=== PATIENT | female | born 1980 | race Caucasian/White ===

== ENCOUNTER 2017-01-19 16:47 | Emergency (ER) ==
[2017-01-19 16:57] VITALS: BMI 15.1
--- NOTE | 2017-01-19 17:06 | ED.PDOC ---
General ED Provider: Dr. MANOJ HILLS JR Chief Complaint: Back Pain Stated Complaint: onset lower back pain 10 days ago--no new injury-was seen at [facility] --treated with x-rays and pain med but no relief-on arrival is screaming loudly--also unable to move bowels --tried mag citrate with no relief- [End] 96.2 125 20 95% 118/99 05/28 norco 10 patient has been on pain management for "bulging discs" for three years upped [place] for past three days ( total of ten days) Time Seen by Physician: 17:05 Mode of Arrival: Wheelchair Information Source: Patient, Family Exam Limitations: No limitations Primary Care Provider: JAN HASSAN Family in [place], [place] - [facility] [place] [phone] Nursing and Triage Documentation Reviewed and Agree: No Review of Systems - Review Of Systems Constitutional: Reports: No symptoms Eyes: Reports: No symptoms Ears, Nose, Mouth, Throat: Reports: No symptoms Respiratory: Reports: No symptoms Cardiac: Reports: No symptoms GI: Reports: Constipated : Reports: No symptoms Musculoskeletal: Reports: Back pain Skin: Reports: No symptoms Neurological: Reports: No symptoms, Other (I was crying when I found out how I weigh.) All Other Systems: Other Past Medical History - Past Medical History Endocrine: Reports: None Cardiovascular: Reports: CAD, Other (--mitral valve prolapse ) Respiratory: Reports: PE (pe rt lung) Hematological: Reports: Anemia Gastrointestinal: Reports: None Genitourinary: Reports: None Neuro/Psych: Reports: None Musculoskeletal: Reports: None Cancer: Reports: None Last Menstrual Period: last week - Surgical History General Surgical History: Denies: Hysterectomy (left ovarian cyst-ovary removed- -also rt ovarian cyst--) - Family History Family History: Reports: Unknown - Social History Smoking Status: Current every day smoker, Light tobacco smoker Smoking Cessation Counseling Time: > 3 min - 10 min Hx Substance Use: No Alcohol Screening: None Physical Exam - Physical Exam Appearance: Ill-appearing, Cachectic Ill-appearing: Mild Pain Distress: Mild Eyes: KAIN, EOMI, Conjunctiva clear ENT: Ears normal, Nose normal, Oropharynx normal Neck: Supple Respiratory: Airway patent, Breath sounds equal, Respirations nonlabored, Rhonchi, Wheezes Cardiovascular: RRR, Pulses normal, No rub, No murmur GI/: Soft, Nontender, No masses, Bowel sounds normal, No Organomegaly Musculoskeletal: Normal strength, ROM intact, No edema, No calf tenderness ( complains of back tenderness but no focal tenderness complains of back pain at L4-5 level no skin changes seen) Skin: Warm, Dry, Normal color Neurological: Sensation intact, Motor intact, Reflexes intact, Cranial nerves intact, Alert, Oriented (complains of pain states visiting in [place] does not seem to understand wisdom for continuity of care) Psychiatric: Anxious Interpretation - Radiology Interpretation Radiology Interpretation By: Radiologist Radiology Results: Positive Exam Interpreted: CT Scan ([place]- adenopathy vs retroperitoneal fibrosis , can be idiapathic usially or caused by ergot other meds or desmoplastic lymphoma) Re-Evaluation - Re-Evaluation Time of Re-Evaluation: 17:38 (awaiting old records- note release [id number] calledleft message [id number]) Status: Unchanged Vital Signs Stable: Yes ([id number] awaiting old records called Lisa [place] in [place]- [place]) Pain Level: flying out - will lfax records after transfer - Re-Evaluation Time of Re-Evaluation: 21:31 Status: Improved (each injection of 2mg MS resolved patient' pain) Physician Notification - Case Discussed Physician Notified: dr cherry Time of Notification: 21:31 (previously disc with SHAYLA ARIZA, discwith DR KENDALL CHERRY- [id number] transfer retroperitoneal fibrosis) Endorsed To/Discussed With: DR LOPEZ Time of Discussion: 19:00 Critical Care Note - Critical Care Note Total Time (mins): 5 Course - Course Hematology/Chemistry: 01/19/17 19:45 01/19/17 19:45 Orders, Labs, Meds: Lab Review 01/19/17 01/19/17 17:35 19:45 WBC 14.70 H RBC 3.75 L Hgb 10.9 L Hct 32.7 L MCV 87.2 MCH 29.1 MCHC 33.3 RDW Coeff of Vitor 14.2 Plt Count 298 Immature Gran % (Auto) 0.4 Neut % (Auto) 83.9 Lymph % (Auto) 9.3 L [place] % (Auto) 6.1 Eos % (Auto) 0.1 Baso % (Auto) 0.2 Immature Gran # (Auto) 0.1 Neut # 12.3 H Lymph # 1.4 [place] # 0.9 Eos # 0.0 Baso # 0.0 ESR 118 H PT 10.6 INR 1.03 D-Dimer (Manual) 3532.13 Sodium 135 L Potassium 4.4 Chloride 96 L Carbon Dioxide 27 Anion Gap 16.4 BUN 12 Creatinine 0.75 Estimated GFR (MDRD) 88.00 BUN/Creatinine Ratio 16.00 Glucose 96 Calcium 10.5 H Total Bilirubin 0.41 AST 19 ALT 13 Alkaline Phosphatase 91 Total Protein 8.4 H Albumin 3.0 L Globulin 5.4 Albumin/Globulin Ratio 0.56 Urine Color Yellow Urine Clarity Clear Urine pH 7.5 Ur Specific [place] 1.015 Urine Protein 1+ Urine Glucose (UA) Negative Urine Ketones Negative Urine Blood 2+ Urine Nitrite Negative Urine Bilirubin Negative Urine Urobilinogen 0.2 Ur Leukocyte Esterase Negative Urine Microscopic RBC 2-5 Urine Microscopic WBC 0-2 Ur Squamous Epith Cells 0-2 Urine Test Negative Orders Category Date Time Status NPO REMINDER: IMAGING ONCE CARE 01/19/17 19:55 Completed NPO REMINDER: IMAGING ONCE CARE 01/19/17 20:18 Completed IV [ED IV/MEDIPORT/POWERPORT] .ONCE EMERGENCY 01/19/17 20:19 Active CBC W/ AUTO DIFF Stat LAB 01/19/17 19:45 Completed CMP [COMPREHENSIVE METABOLIC PANEL] Stat LAB 01/19/17 19:45 Completed CRP [C-REACTIVE PROTEIN] Stat LAB 01/19/17 19:45 Received D-DIMER Stat LAB 01/19/17 19:45 Completed ESR Stat LAB 01/19/17 19:45 Completed TEST URINE [URINE ] Stat LAB 01/19/17 17:35 Completed PT WITH INR Stat LAB 01/19/17 19:45 Completed UA [URINALYSIS C & S IF INDICATED] Stat LAB 01/19/17 17:35 Completed 0.9 % Sodium Chloride [Saline Flush] MEDS 01/19/17 20:19 Ordered 1 syr IVF PRN PRN Benzonatate [Tessalon Perles] MEDS 01/19/17 17:59 Discontinued 200 mg PO ONCE STA Morphine Sulfate [Morphine 2 mg/ml Syringe] MEDS 01/19/17 17:43 Discontinued 2 mg IM ONCE STA Morphine Sulfate [Morphine 2 mg/ml Syringe] MEDS 01/19/17 17:19 Discontinued 2 mg IVP ONCE STA Morphine Sulfate [Morphine 2 mg/ml Syringe] MEDS 01/19/17 20:44 Discontinued 2 mg IVP ONCE STA Promethazine HCl [Phenergan 25 mg/ml Vial] MEDS 01/19/17 17:19 Discontinued 25 mg IM ONCE STA CHEST, 2 VIEWS PA & LAT Stat RADS 01/19/17 18:[address] ABD/PEL WO RENAL STONE PROT Stat RADS 01/19/17 18:[address] ABDOMEN/PELVIS W CONTRAST Stat RADS 01/19/17 20:[address] LUMBAR SPINE W/CONTRAST Stat RADS 01/19/17 20:[address] LUMBAR SPINE W/O CONTRAST Stat RADS 01/19/17 19:02 Completed Medications Generic Name Dose Route Start Last Admin Trade Name Freq PRN Reason Stop Dose Admin Sodium Chloride 1 syr 01/19/17 20:19 01/19/17 21:05 Saline Flush IVF 1 syr PRN PRN Administration To flush IV Discontinued Medications Generic Name Dose Route Start Last Admin Trade Name Freq PRN Reason Stop Dose Admin Benzonatate 200 mg 01/19/17 17:59 01/19/17 18:04 Tessalon Perles PO 01/19/17 18:00 200 mg ONCE STA Administration Morphine Sulfate 2 mg 01/19/17 17:19 01/19/17 17:52 Morphine 2 Mg/Ml Syringe IVP 01/19/17 17:20 Not Given ONCE STA Morphine Sulfate 2 mg 01/19/17 17:43 01/19/17 17:49 Morphine 2 Mg/Ml Syringe IM 01/19/17 17:44 2 mg ONCE STA Administration Morphine Sulfate 2 mg 01/19/17 20:44 01/19/17 20:59 Morphine 2 Mg/Ml Syringe IVP 01/19/17 20:45 2 mg ONCE STA Administration Promethazine HCl 25 mg 01/19/17 17:19 01/19/17 17:51 Phenergan 25 Mg/Ml Vial IM 01/19/17 17:20 25 mg ONCE STA Administration Vital Signs: Temp Pulse Resp BP Pulse Ox 01/19/17 20:46 98.4 F 120 H 14 102/68 96 01/19/17 16:47 96.2 F L 125 H 20 118/99 H 95 Departure - Departure Time of Disposition: 19:24 Disposition: TSF SHORT-TRM HOSP Discharge Problem: Retroperitoneal fibrosis Condition: Stable Pt referred to PMD for follow-up: No ([facility], [place] Dr Cherry) Additional Instructions: Follow up PMD discuss low weight and back pain consider exercise program for back pain Smoking with a history of Pulmonary Embolism is contraindicated- you must stop smoking to help avoid new emboli return if fever over 101.[address] of spine for back pain with your physician Allergies/Adverse Reactions: Allergies codeine Adverse Reaction (Verified 01/19/17 16:59) ketorolac [From Toradol] Adverse Reaction (Verified 01/19/17 16:59) latex Adverse Reaction (Verified 01/19/17 16:59) tramadol Adverse Reaction (Verified 01/19/17 16:59) Home Medications: Ambulatory Orders Hydrocodone/Acetaminophen [Hydrocodon-Acetaminophn 10-300] 1 each PO QID PRN 11/02 Trazodone HCl 100 mg PO DAILY 01/19/17 Warfarin Sodium [Coumadin] 5 mg PO DAILY 01/19/17
[2017-01-19] MEDS ORDERED: PHENERGAN 25 MG/ML VIAL IM STA (17:19)
[2017-01-19] MEDS ORDERED: MORPHINE 2 MG/ML SYRINGE IVP STA ×2 (17:19→20:44)
[2017-01-19 17:43] LABS: BILIRUBIN,URINE Negative (NEGATIVE); KETONES,URINE Negative (NEGATIVE); LEUKOCYTE ESTERASE ,URINE Negative (NEGATIVE); NITRITE,URINE Negative (NEGATIVE); PH,URINE 7.5 (5-9); PROTEIN,URINE 1+ (NEGATIVE); URINE, BLOOD 2+ (NEGATIVE)
[2017-01-19] MEDS ORDERED: MORPHINE 2 MG/ML SYRINGE IM STA (17:43)
[2017-01-19 17:44] LABS: URINE PREGNANCY INTERNAL QC INTERNAL QC VALID
[2017-01-19 17:45] LABS: ADD URINE MICROSCOPIC YES
[2017-01-19] MEDS ORDERED: TESSALON PERLES PO STA (17:59)
--- NOTE | 2017-01-19 19:32 | DI ---
EXAM: PA and lateral views of the chest HISTORY: Cough COMPARISON: None FINDINGS: Lungs are clear with no lobar consolidation, failure, large effusion or significant atele ctasis. The cardiomediastinal silhouette is unremarkable. No acute osseous or soft tissue abnormal ities. IMPRESSION: No active disease.
--- NOTE | 2017-01-19 19:39 | CT ---
EXAM: CT scan abdomen pelvis without contra HISTORY: Lower abdominal pain hematuria COMPARISON: None. FINDINGS: Contiguous axial images obtained through the abdomen pelvis without contrast utilizing 3- mm collimation. Sagittal coronal reconstructions were imaged and reviewed.. There is a ground-glas s infiltrate in the right lower lobe.. Nonspecific fissural thickening is noted laterally at the le ft lung base. There is likely dependent sludge within the gallbladder. Liver pancreas spleen and ad renal glands have normal unenhanced CT appearance. Kidneys are morphologically normal.. The append ix was not visualized.. Review of bone windows reveals no evidence of lytic or blastic lesions.. T here is mild intervertebral disc space narrowing at L4-L5. IMPRESSION: Ground-glass infiltrate right lower lobe. No acute intra-abdominal findings.
[2017-01-19 19:51] LABS: BASOPHILS % (AUTO) 0.2 % (0.0-3.0); EOSINOPHILS % (AUTO) 0.1 % (0.0-7.0); HEMATOCRIT 32.7 % (37.0-47.0); HEMOGLOBIN 10.9 g/dl (12.0-16.0); IMMATURE GRANULOCYTE % (AUTO) 0.4 % (0.0-5.0); LYMPHOCYTES # (AUTO) 1.4 K/uL (0.60-3.4); LYMPHOCYTES % (AUTO) 9.3 (10.0-50.0); MEAN CORPUSCULAR HEMOGLOBIN 29.1 pg (27.0-31.0); MEAN CORPUSCULAR HGB CONC 33.3 (31.8-35.4); MEAN CORPUSCULAR VOLUME 87.2 fl (81.0-99.0); MONOCYTES # (AUTO) 0.9 K/uL (0.4-2.0); MONOCYTES % (AUTO) 6.1 (0-10); NEUTROPHILS # (AUTO) 12.3 K/ul (2.0-6.9); NEUTROPHILS % (AUTO) 83.9; PLATELET COUNT 298 10^3/uL (140-440); RED BLOOD COUNT 3.75 10^6/ul (4.20-5.40)
[2017-01-19 20:01] LABS: PROTHROMBIN TIME 10.6 SEC (9.3-11.0)
--- NOTE | 2017-01-19 20:05 | CT ---
EXAM: CT of the lumbar spine without contrast. TECHNIQUE: Helical CT of the lumbar spine was performed without contrast with coronal and sagittal reconstructions. COMPARISON: CT abdomen pelvis from 09/1989 HISTORY: Back pain FINDINGS: There is no compression or subluxation. Alignment is anatomic. There are no pars defect s. There is no bony effacement of the canal. There is no evidence for laminar or transverse process or spinous process fracture. The pedicles are intact. The facets are anatomically aligned. There i s no abnormality seen in the visualized portion of the bony pelvis. There are five lumbar-type verte bral bodies. L1-2: Normal L2-3: Normal L3-4: Normal L4-5: There is some disc space narrowing with some facet arthropathy on the left. L5 S1: There is a minimal bulge with some minimal facet degenerative change. There is noted to be quite a bit of abnormal soft tissue in the retroperitoneum slightly to the left of midline most apparent at the L5 level. IMPRESSION: 1. Minimal degenerative change as above including degenerative facet arthropathy on the left and so me disc space narrowing at L4-5. 2. Abnormal soft tissue in the retroperitoneum slightly to the left of midline as described. This m ay be on the basis of retroperitoneal fibrosis versus less likely adenopathy. Would recommend a CT abdomen pelvis with contrast to better evaluate. Report called to Dr. Quinonez
[2017-01-19 20:11] LABS: ALBUMIN/GLOBULIN RATIO 0.56; ANION GAP 16.4; BILIRUBIN,TOTAL 0.41 mg/dL (0.00-1.20); CALCIUM 10.5 mg/dL (8.2-10.2); CREATININE 0.75 mg/dL (0.60-1.30); POTASSIUM 4.4 mmol/L (3.5-5.10); TOTAL PROTEIN 8.4 g/dL (6.4-8.2)
[2017-01-19 20:25] LABS: ERYTHROCYTE SEDIMENTATION RATE 118 mm/hr (0-20); ESR INTERNAL QC INTERNAL QC VALID
[2017-01-19 20:47] VITALS: BP 102/68; TEMP 98.4
--- NOTE | 2017-01-19 21:01 | CT ---
EXAM: CT scan of the lumbar spine with contrast HISTORY: Lumbosacral pain. Suspected peritoneal fibrosis. TECHNIQUE: Imaging of the lumbar spine was performed with intravenous contrast. Sagittal and coron al reconstructions and axial images were provided for interpretation. FINDINGS: There is straightening of the lumbar spine. There is no evidence of compression fracture . There is no pars defect. There is soft tissue fullness seen within the retroperitoneum on the le ft. Findings are seen on axial image number 67. The findings appear to be encasing the left common iliac vein. Segmental analysis: T12-L1: The central canal and neural foramina appear patent. L1-L2: The central canal and neural foramina appear patent. L2-L3: The central canal and neural foramina appear patent. L3-L4: The central canal and neural foramina appear patent. L4-L5: There is disc bulge with a superimposed central disc protrusion measuring 5 mm AP, indenting the ventral thecal sac. There is mild central canal and lateral recess stenosis. The thecal sac i s reduced to 8 mm AP. There is mild bilateral foraminal stenosis. L5-S1: The central canal and lateral recesses appear patent. There is mild narrowing of the neural foramina bilaterally. IMPRESSION: There is abnormal soft tissue seen within the retroperitoneum on the left as described above. Refer to the CT scan of the abdomen and pelvis performed on the same day for further details . The findings may represent retroperitoneal fibrosis. There is disc bulge with a superimposed central broad-based disc protrusion seen at L4-L5 measuring 5 mm AP causing mild central canal and lateral recess stenosis at L4-L5. No acute compression fractures are seen within the lumbar spine.
--- NOTE | 2017-01-19 21:16 | CT ---
EXAM: CT of the abdomen pelvis with contrast TECHNIQUE: Helical axial CT of the abdomen pelvis was performed with contrast with coronal and sagi ttal reconstructions. COMPARISON: CT abdomen pelvis precontrast from today earlier HISTORY: Back pain FINDINGS: Again seen is a vague area of soft tissue in the retroperitoneum extending from L4 to the S1 level left greater than right. This area shows some patchy areas of enhancement and encases the common iliac vein on the left which is poorly opacified. There is no evidence for osseous invasion . Maximum thickness is noted over the left aspect of the L5 vertebral body of about 2 cm. The liver, spleen, pancreas, adrenal glands and kidneys are unremarkable. There is no hydronephrosi s. Uterus and adnexa are unremarkable. Urinary bladder is normal. There are no acute osseous abno rmalities. Again seen is a patchy area of infiltrate in the right lung base. There are a few promi nent loops of small bowel in the right pelvis. There is no overt obstruction or ileus. There is no free air or free fluid or bowel wall thickening or edema. IMPRESSION: 1. Abnormal soft tissue in the left retroperitoneal area seen from L4-S1 which encases the left com mon iliac vein and demonstrates patchy areas of enhancement. This is most consistent with retroperi toneal fibrosis probably idiopathic etiology however certain medications such ergot alkaloids can al so be associated. Atypical appearance for adenopathy is considered less likely. 2. Patchy infiltrate right base. 3. Multiple prominent loops of small bowel in the right pelvis with no definite obstruction. Report called to Dr. Quinonez
== END 2017-01-19 21:55 | disposition short-term general hospital (02) ==
LOC: EDBD 16:47 → ED 16:47
DX: N13.5 Crossing vessel and stricture of ureter without hydronephrosis (principal); K59.00 Constipation, unspecified; M54.5 Low back pain; D64.9 Anemia, unspecified; I25.10 Atherosclerotic heart disease of native coronary artery without angina pectoris; F17.210 Nicotine dependence, cigarettes, uncomplicated; Z86.711 Personal history of pulmonary embolism; Z79.01 Long term (current) use of anticoagulants; Z79.899 Other long term (current) drug therapy
CPT/HCPCS: 36415; 74176; 80053; 81001; 81025; 85025; 85379; 85610; 85651; 86140; 96372; 96374; 99285

== ENCOUNTER 2017-01-19 21:56 | Outpatient (CLI) ==
[2017-01-19 16:57] VITALS: BMI 15.1
== END 2017-01-19 21:57 | disposition home or self-care (01) ==
LOC: AMBL 21:56
PROVIDERS: ATTEND Family Medicine
DX: M54.5 Low back pain (principal); R93.7 Abnormal findings on diagnostic imaging of other parts of musculoskeletal system

== ENCOUNTER 2017-11-25 12:46 | Emergency (ER) ==
[2017-11-25 12:50] VITALS: BP 127/90; TEMP 97.7; BMI 16.9
--- NOTE | 2017-11-25 14:25 | US ---
EXAM: Ultrasound Transvaginal Non-obstetrical. HISTORY: Pelvic pain. COMPARISON: CT 01/19/2017. TECHNIQUE: Goff scale and color doppler images with transvaginal probe. FINDINGS: The uterus measures 5.8 x 2.8 x 3.9 cm and appears normal. Endometrial stripe measures 0. 2 cm. No endometrial fluid collections are seen. Right ovary measures 3.8 x 2.4 x 2.9 cm and contains several follicles. Color flow present in the ri ght ovary. Left ovary not seen. No adnexal masses or pelvic fluid collections are identified. IMPRESSION: No sonographic abnormality of the pelvis.
--- NOTE | 2017-11-25 14:44 | CT ---
EXAM: CT abdomen pelvis without contrast HISTORY: Right lower quadrant abdominal pain COMPARISON: 01/19/2017 TECHNIQUE: CT abdomen pelvis performed without intravenous contrast. Coronal and sagittal reformatt ed images obtained. FINDINGS: Lung bases clear. No free air. Lucent and sclerotic endplate degenerative changes L4-L5, likely related to prior and/or chronic diskitis osteomyelitis. Previously seen retroperitoneal soft tissue near this level is diminished and very poorly evaluated without contrast. Heart normal in s ize. Evaluation organ parenchyma limited without contrast. Liver appears normal. Spleen unremarkabl e. Adrenals unremarkable. No hydronephrosis or nephrolithiasis. No calculi visualized in normal co urse of the ureters. Bladder unremarkable. Stomach appears normal.. Uterus unremarkable. Stomach unremarkable. Scattered fluid-filled loops of small bowel with scattered fluid levels. Appendix not visualized. Colon unremarkable.Probable small nonspecific pelvic free fluid, difficult to different iate from the pelvic small bowel . IMPRESSION: 1. Nonspecific bowel gas pattern with scattered fluid-filled loops small bowel with scattered fluid levels. Findings may represent enteritis. 2. Probable small nonspecific pelvic free fluid, difficult to differentiate from the pelvic small bow el . 3. Appendix not visualized 4. Lucent and sclerotic endplate degenerative changes L4-L5, likely related to prior or chronic disk itis osteomyelitis. Previously seen retroperitoneal soft tissue near this level is diminished and ve ry poorly evaluated without contrast. Recommend correlation with patient history and prior treatment . 5. Evaluation limited without contrast.
[2017-11-25] MEDS ORDERED: SODIUM CHLORIDE 1,000 ML IV STA (15:02)
[2017-11-25] MEDS ORDERED: ROCEPHIN 1 GM in SODIUM CHLORIDE 50 ML IV STA (15:02)
[2017-11-25] MEDS ORDERED: NORCO 10-325 PO STA (15:10)
--- NOTE | 2017-11-25 15:15 | ED.PDOC ---
General ED Provider: Dr. KYLEIGH GRIDER Chief Complaint: Abdominal Pain Stated Complaint: abdominal pain Time Seen by Physician: 13:00 (seen with nick gordon ) Mode of Arrival: Walk-In ([facility]) Information Source: Patient Primary Care Provider: KATI EATON Nursing and Triage Documentation Reviewed and Agree: Yes Reviewed sepsis parameters & appropriate labs ordered?: Yes System Inflammatory Response Syndrome: Not Applicable Sepsis Protocol: For patient's 13 years and over: Temp is 96.8 and below OR 101 and greater Pulse >90 BPM Resp >20/minute Acutely Altered Mental Status Are patient's symptoms suggestive of a new infection, such as: -Pneumonia -Skin, Soft Tissue -Endocarditis -UTI -Bone, Joint Infection -Implantable Device -Acute Abdominal Infection -Wound Infection -Meningitis -Blood Stream Catheter Infection -Unknown System Inflammatory Response Syndrome: Not Applicable GI Complaint Exam - Abdominal Pain Complaint/Exam Onset: Gradual Duration: CHRONIC MORE TODAY HAS HX/O CYSTS Symptoms Are: Still present Timing: Constant Initial Severity: Moderate Current Severity: Moderate Location of Pain: RLQ, LLQ Character: Reports: Dull Aggravating: Reports: None Alleviating: Reports: None Associated Signs and Symptoms: Denies: Diaphoresis, Fever, Cough, Chest pain, Dizziness, Back pain, Constipation, Blood in stool, Dysuria, Urinary frequency, Decreased urine output, Decreased appetite, Vaginal bleeding, Vaginal discharge , Nausea, Vomiting, Diarrhea, Sore throat, Decreased activity Related History: Reports: Similar episode [employer]NAL [employer]ER History: Reports: Ovarian cyst : 0 Hx Total # of Abortions (Spontaneous & Elective): 0 AAA Risk Factors: Reports: None Cardiac Risk Factors: Reports: None Ectopic Risk Factors: Reports: None Ovarian Torsion Risk Factors: Reports: Reproductive age, Ovarian cysts Surgical Obstruction Risk Factors: Reports: None Related Surgical History: Reports: None Patient Rh Status: Unknown Abdominal Findings: Present: None Differential Diagnoses: Appendicitis, Bowel Obstruction, Constipation, Diverticulitis, Gastroenteritis, Hepatitis, Pancreatitis, Irritable Bowel Syndrome, UTI Review of Systems - Review Of Systems Constitutional: Reports: No symptoms Eyes: Reports: No symptoms Ears, Nose, Mouth, Throat: Reports: No symptoms Respiratory: Reports: No symptoms Cardiac: Reports: No symptoms GI: Reports: Abdominal pain : Reports: Dysuria Musculoskeletal: Reports: No symptoms Skin: Reports: No symptoms Neurological: Reports: No symptoms Endocrine: Reports: No symptoms Hematologic/Lymphatic: Reports: No symptoms All Other Systems: Reviewed and Negative Past Medical History - Past Medical History Previously Healthy: Yes Endocrine: Reports: None Cardiovascular: Reports: CAD, Other (--mitral valve prolapse ) Respiratory: Reports: PE (pe rt lung) Hematological: Reports: Anemia Gastrointestinal: Reports: None Genitourinary: Reports: None Neuro/Psych: Reports: None Musculoskeletal: Reports: None Cancer: Reports: None Last Menstrual Period: NOVEMBER 17 - Surgical History General Surgical History: Reports: None - Family History Family History: Reports: Unknown - Social History Smoking Status: Current every day smoker, Light tobacco smoker Hx Substance Use: No Alcohol Screening: None Physical Exam - Physical Exam Appearance: Well-appearing, No pain distress, Well-nourished Eyes: KAIN, EOMI, Conjunctiva clear ENT: Ears normal, Nose normal, Oropharynx normal Respiratory: Airway patent, Breath sounds clear, Breath sounds equal, Respirations nonlabored Cardiovascular: RRR, Pulses normal, No rub, No murmur GI/: Soft, Nontender, No masses, Bowel sounds normal, No Organomegaly Musculoskeletal: Normal strength, ROM intact, No edema, No calf tenderness Skin: Warm, Dry, Normal color Neurological: Sensation intact, Motor intact, Reflexes intact, Cranial nerves intact, Alert, Oriented Psychiatric: Affect appropriate, Mood appropriate Interpretation - Radiology Interpretation Radiology Interpretation By: Radiologist Radiology Results: No acute changes Procedures - IV/Art Line Insertion Location: LEFT SIDE FIRST ATTEMPT Type of Line: Other (AREA PREPED WITH BETADINE EXTENSIVELY) Number of Attempts: 1 Blood Return Positive: Yes Invasive Line/IV Flushes Without Difficulty: Yes Critical Care Note - Critical Care Note Total Time (mins): 0 Course - Course Hematology/Chemistry: 11/25/17 13:30 11/25/17 13:30 Orders, Labs, Meds: Lab Review 11/25/17 11/25/17 11/25/17 13:30 13:30 13:30 WBC 5.31 RBC 4.10 L Hgb 11.9 L Hct 35.7 L MCV 87.1 MCH 29.0 MCHC 33.3 RDW Coeff of Vitor 15.9 H Plt Count 187 Immature Gran % (Auto) 0.2 Neut % (Auto) 62.7 Lymph % (Auto) 31.8 Emmons % (Auto) 4.1 Eos % (Auto) 0.6 Baso % (Auto) 0.6 Immature Gran # (Auto) 0.0 Neut # (Auto) 3.3 Lymph # (Auto) 1.7 Emmons # (Auto) 0.2 L Eos # (Auto) 0.0 Baso # (Auto) 0.0 Sodium 142 Potassium 4.0 Chloride 111 H Carbon Dioxide 24 Anion Gap 11.0 BUN 11 Creatinine 0.74 Estimated GFR (MDRD) 89.00 BUN/Creatinine Ratio 14.86 Glucose 92 Calcium 9.0 Total Bilirubin 0.3 AST 11 L ALT 6 L Alkaline Phosphatase 60 Total Protein 6.8 Albumin 3.3 L Globulin 3.5 Albumin/Globulin Ratio 0.94 Urine Color Yellow Urine Clarity Slightly Urine pH 7.0 Ur Specific [place] >=1.030 Urine Protein 3+ Urine Glucose (UA) Negative Urine Ketones Trace Urine Blood 3+ Urine Nitrite Negative Urine Bilirubin 1+ Urine Urobilinogen 0.2 Ur Leukocyte Esterase Negative Urine Microscopic RBC 20-30 Urine Microscopic WBC 0-2 Ur Squamous Epith Cells 0-2 Urine Bacteria 2+ Hyaline Casts 2-5 Urine Mucus 1+ Urine Test 11/25/17 13:30 WBC RBC Hgb Hct MCV MCH MCHC RDW Coeff of Vitor Plt Count Immature Gran % (Auto) Neut % (Auto) Lymph % (Auto) Emmons % (Auto) Eos % (Auto) Baso % (Auto) Immature Gran # (Auto) Neut # (Auto) Lymph # (Auto) Emmons # (Auto) Eos # (Auto) Baso # (Auto) Sodium Potassium Chloride Carbon Dioxide Anion Gap BUN Creatinine Estimated GFR (MDRD) BUN/Creatinine Ratio Glucose Calcium Total Bilirubin AST ALT Alkaline Phosphatase Total Protein Albumin Globulin Albumin/Globulin Ratio Urine Color Urine Clarity Urine pH Ur Specific [place] Urine Protein Urine Glucose (UA) Urine Ketones Urine Blood Urine Nitrite Urine Bilirubin Urine Urobilinogen Ur Leukocyte Esterase Urine Microscopic RBC Urine Microscopic WBC Ur Squamous Epith Cells Urine Bacteria Hyaline Casts Urine Mucus Urine Test Negative Orders Category Date Time Status NPO REMINDER: IMAGING ONCE CARE 11/25/17 14:50 Ordered ED IV/MEDIPORT/POWERPORT .ONCE EMERGENCY 11/25/17 14:49 Ordered CBC W/ AUTO DIFF Stat LAB 11/25/17 13:30 Completed COMPREHENSIVE METABOLIC PANEL Stat LAB 11/25/17 13:30 Completed URINALYSIS C & S IF INDICATED Stat LAB 11/25/17 13:30 Completed URINE CULTURE Stat LAB 11/25/17 13:30 Received URINE Stat LAB 11/25/17 13:30 Completed 0.9 % Sodium Chloride [Saline Flush] MEDS 11/25/17 14:49 Ordered 1 syr IVF PRN PRN Ceftriaxone Sodium [Rocephin] 1 gm MEDS 11/25/17 15:02 Ordered 0.9 % Sodium Chloride [Sodium Chloride] 50 ml IV ONCE Hydrocodone Bit/Acetaminophen [Reno 10-325] MEDS 11/25/17 15:10 Stat 1 tab PO ONCE STA SODIUM CHLORIDE 0.9% @ 1,000 MLS/HR(1,000ml) MEDS 11/25/17 15:02 Ordered Sodium Chloride 0.9% [Sodium Chloride] 1,[address] ABDOMEN/PELVIS W CONTRAST Stat RADS 11/25/17 14:[address] ABDOMEN/PELVIS WO CONTRAST Stat RADS 11/25/17 13:25 Completed U/S PELVIS MERCADO VAGINAL/NON OB Stat RADS 11/25/17 13:25 Completed Medications Generic Name Dose Route Start Last Admin Trade Name Freq PRN Reason Stop Dose Admin Sodium Chloride 1,000 mls @ 1,000 mls/hr 11/25/17 15:02 Sodium Chloride IV 11/25/17 16:01 BOLUS STA Ceftriaxone Sodium 1 gm/ 50 mls @ 75 mls/hr 11/25/17 15:02 Sodium Chloride IV 11/25/17 15:41 ONCE STA Sodium Chloride 1 syr 11/25/17 14:49 Saline Flush IVF PRN PRN To flush IV Discontinued Medications Generic Name Dose Route Start Last Admin Trade Name Freq PRN Reason Stop Dose Admin Hydrocodone Bitart/Acetaminophen 1 tab 11/25/17 15:10 [place] 10-325 PO 11/25/17 15:11 ONCE STA Vital Signs: Temp Pulse Resp BP Pulse Ox 11/25/17 12:46 97.7 F 90 18 127/90 95 Departure - Departure Time of Disposition: 16:14 (ALL DATA PRINTED AND GIVEN TO THE PTJaime MANN) Disposition: HOME SELF-CARE Discharge Problem: Abdominal pain UTI (urinary tract infection) Qualifiers: Urinary tract infection type: site unspecified Hematuria presence: with hematuria Qualified Code(s): N39.0 - Urinary tract infection, site not specified ; R31.9 - Hematuria, unspecified; R31.9 - Hematuria, unspecified Instructions: Abdominal Pain (ED), Chronic Abdominal Pain (ED) Condition: Good Pt referred to PMD for follow-up: Yes IPMP verified?: No Additional Instructions: Please call your Family Physician as soon as possible to schedule a follow-up appointment.SEE YOUR DOCTOR YOSHI TAKE THE COPIES OF THE LABS I HAVE PRINTED TO THEM WELL YOUR X RAY REPORTS Prescriptions: Hydrocodone/Acetaminophen [Reno 5-325 Tablet] 1 each PO Q6HR PRN #7 tablet PRN Reason: PAIN Sulfamethoxazole/Trimethoprim [Bactrim Ds 800/160 mg] 1 tab PO Q12HR #6 tablet Allergies/Adverse Reactions: Allergies codeine Adverse Reaction (Verified 11/25/17 12:51) ketorolac [From Toradol] Adverse Reaction (Verified 11/25/17 12:51) latex Adverse Reaction (Verified 11/25/17 12:51) tramadol Adverse Reaction (Verified 11/25/17 12:51) Home Medications: Ambulatory Orders Trazodone HCl 100 mg PO DAILY 01/19/17 Hydrocodone/Acetaminophen [Reno 5-325 Tablet] 1 each PO Q6HR PRN #7 tablet 05/06 Oxycodone HCl 10 mg PO QID 11/25/17 Sulfamethoxazole/Trimethoprim [Bactrim Ds 800/160 mg] 1 tab PO Q12HR #6 tablet 11/25/17
[2017-11-25] MEDS ORDERED: ROCEPHIN ONE (15:38)
--- NOTE | 2017-11-25 15:49 | CT ---
EXAM: CT Abdomen with contrast. CT Pelvis with contrast. HISTORY: Right lower quadrant pain. COMPARISON: Noncontrast abdominal CT earlier the same day. Pelvic ultrasound earlier the same day. TECHNIQUE: Multiple axial images of the abdomen and pelvis were obtained following intravenous admin istration of 75 mL of Omnipaque 350, low osmolar. Images were reformatted in the sagittal and bonilla l plane. FINDINGS: No acute abnormality identified in the lung bases. Small amount pericardial fluid noted. Stable chronic endplate changes at L4-5. No acute osseous abnormality is identified. The liver, gallbladder, pancreas, spleen, adrenal glands, and kidneys appear normal. There is no evidence for bowel obstruction. The appendix is normal. Uterus demonstrates normal cont our. Urinary bladder is unremarkable. Small amount of free pelvic fluid is within physiologic range . No free air or lymphadenopathy detected nonenlarged retroperitoneal lymph nodes are present. IMPRESSION: . No acute abnormality within the abdomen or pelvis.
== END 2017-11-25 16:47 | disposition home or self-care (01) ==
LOC: ED 12:46
DX: N39.0 Urinary tract infection, site not specified (principal); R31.9 Hematuria, unspecified; R10.30 Lower abdominal pain, unspecified; F17.210 Nicotine dependence, cigarettes, uncomplicated; I25.10 Atherosclerotic heart disease of native coronary artery without angina pectoris; Z86.711 Personal history of pulmonary embolism
CPT/HCPCS: 36415; 80053; 81001; 81025; 85025; 87086; 96361; 96365; 99283